=== PATIENT | female | born 1940 | race Caucasian/White ===

== ENCOUNTER 2024-02-15 06:17 | Day surgery (SDC) | payer OTHER, SELFPAY | END 2024-02-15 10:02 | disposition home or self-care (01) | LOC: GI 06:17 | PROVIDERS: ATTENDING PHYSICIAN Internal Medicine | DX: R13.10 Dysphagia, unspecified (principal); Q39.4 Esophageal web; K22.2 Esophageal obstruction; K29.50 Unspecified chronic gastritis without bleeding | CPT/HCPCS: 43248; 43239; 88305; 88342 ==

== ENCOUNTER → 2025-02-28 12:55 | Outpatient (REF) | payer OTHER, SELFPAY | LOC: HWRCS 12:55 | PROVIDERS: ATTENDING PHYSICIAN Internal Medicine Cardiovascular Disease; FAMILY PHYSICIAN Family Medicine | DX: R01.1 Cardiac murmur, unspecified (principal) | CPT/HCPCS: 93306 ==